=== PATIENT | female | born 2000 | race Caucasian/White ===

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

== ENCOUNTER 2021-08-25 08:58 | Emergency (ER) | payer BC ==
[~2021-08-25] VITALS: Ht 160 cm; Wt 72.7 kg
[2021-08-25 09:08] VITALS: BP 117/72
[2021-08-25] MEDS ORDERED: MUPI22OI30 TOP (09:59)
== END 2021-08-25 10:17 | disposition home or self-care (01) ==
LOC: ER 08:59
DX: S91.105A Unspecified open wound of left lesser toe(s) without damage to nail, initial encounter (principal); M79.675 Pain in left toe(s); R20.0 Anesthesia of skin; F12.90 Cannabis use, unspecified, uncomplicated; Z79.899 Other long term (current) drug therapy; X58.XXXA Exposure to other specified factors, initial encounter; Y93.89 Activity, other specified; Y92.89 Other specified places as the place of occurrence of the external cause; Y99.8 Other external cause status
CPT/HCPCS: 99282; 99283

== ENCOUNTER 2024-01-05 09:38 | Emergency (ER) | payer BC ==
[~2024-01-05] VITALS: Ht 160 cm; Wt 89.9 kg
[2024-01-05] MEDS: triamcinolone acetonide 40mg/ml inj IM ONE (11:58)
[2024-01-05 12:02] VITALS: BP 120/74; PULSE 68; RESP 14; TEMP 97.9; O2SAT 99
== END 2024-01-05 12:03 | disposition home or self-care (01) ==
LOC: ER 09:39
DX: L23.7 Allergic contact dermatitis due to plants, except food (principal); F12.90 Cannabis use, unspecified, uncomplicated; Z79.899 Other long term (current) drug therapy
CPT/HCPCS: 96372; 99283; J3301

== ENCOUNTER 2024-02-27 08:49 | Emergency (ER) | payer BC ==
[~2024-02-27] VITALS: Ht 162.6 cm; Wt 84.1 kg
[2024-02-27 08:50] VITALS: BP 130/95; PULSE 67; RESP 18; TEMP 96.6; O2SAT 100
[2024-02-27 09:58] LABS: BASOPHILS # (AUTO) 0.1 X10'3 (0-0.2); BASOPHILS % (AUTO) 0.9 % (0-1); EOSINOPHILS # (AUTO) 0.1 X10'3 (0-0.9); EOSINOPHILS % (AUTO) 1.3 % (0-6); HEMATOCRIT 40.9 % (35.0-45.0); HEMOGLOBIN 13.4 g/dl (12.0-16.0); LYMPHOCYTES # (AUTO) 2.1 X10'3 (1.1-4.8); LYMPHOCYTES % (AUTO) 27.4 % (21-51); MEAN CORPUSCULAR HEMOGLOBIN 31.3 PG (27.0-31.0); MEAN CORPUSCULAR HGB CONC 32.9 g/dL (33.0-36.5); MEAN CORPUSCULAR VOLUME 95.1 FL (78-98); MEAN PLATELET VOLUME 9.6 FL (7.4-10.4); MONOCYTES # (AUTO) 0.6 X10'3 (0-0.9); MONOCYTES % (AUTO) 7.4 % (2-12); NEUTROPHILS # (AUTO) 4.9 X10'3 (1.8-7.7); PLATELET COUNT 301 X10'3 (140-440); RED CELL DISTRIBUTION WIDTH 13.3 % (11.5-14.5); WHITE BLOOD COUNT 7.7 X10'3 (4.5-11.0)
== END 2024-02-27 10:51 | disposition home or self-care (01) ==
LOC: ER 08:49
DX: O46.8X9 Other antepartum hemorrhage, unspecified trimester (principal); F12.90 Cannabis use, unspecified, uncomplicated; Z79.899 Other long term (current) drug therapy
CPT/HCPCS: 36415; 84702; 85025; 99283

== ENCOUNTER 2024-09-08 12:51 | Emergency (ER) | payer BC ==
[~2024-09-08] VITALS: Ht 160 cm; Wt 88.1 kg
[2024-09-08 12:59] VITALS: BP 140/80; PULSE 72; RESP 16; TEMP 99; O2SAT 99
[2024-09-08 13:32] LABS: BILIRUBIN,URINE NEGATIVE (Neg); CLARITY,URINE SLIGHTLY CLOUDY (Clear); COLOR,URINE YELLOW (Yellow); GLUCOSE, URINE NEGATIVE (Neg); KETONES,URINE TRACE mg/dl (Neg); LEUKOCYTE ESTERASE ,URINE NEGATIVE (Neg); NITRITES, URINE NEGATIVE (Neg); OCCULT BLOOD,URINE LARGE (Neg); PROTEIN,URINE TRACE mg/dl (Neg); UA COLLECTION TYPE CLN CATCH MIDSTREAM; UROBILINOGEN,URINE 0.2 E.U/dL (0.2-1.0)
[2024-09-08 13:34] LABS: URINE HCG NEGATIVE (NEG)
[2024-09-08 13:40] LABS: BACTERIA,URINE FEW /HPF (Neg); MUCUS STRANDS FEW /LPF (Neg); RBC,URINE 20-50 /HPF (0-2); SQUAMOUS EPITHELIAL CELL,UR FEW /LPF (FEW); WBC,URINE 0-4 /HPF (0-4)
--- NOTE | 2024-09-08 14:37 | Physician Documentation ---
History of Present Illness ~ Chief Complaint: Vaginal Bleeding Stated Complaint: VAGINAL BLEED Time Seen by MD: 14:12 Primary Medical Doctor: Dr. Elizondo HPI Patient is seen today with complaints of being a little late on her most recent period, patient states she started spotting yesterday. And started with lower abdominal cramping and abdominal bloating yesterday. She states she started spotting yesterday but now has some abdominal cramps and breast tenderness and feels a little bloated. Patient denies any chest pain or shortness of breath or abdominal pain. She denies any fevers or chills or nausea, vomiting, diarrhea. Patient states her LMP was on August 06 and states her cycle is around 28 days. Patient states she has been once before and had a stillbirth at seven months. Patient has no other concern or complaint at this time. Medication Reconciliation Allergies: Coded Allergies: No Known Allergies (Unverified , 02/27/24) Scheduled Ondansetron Hcl (Zofran), 1 TAB PO Q6H Past Medical History Past Medical History: No Pertinent History Past Surgical History: no surgical history Alcohol Use: None Drug Use: marijuana Lives with: Family Lives In: Home Occupation: student Review of Systems Constitutional: Denies: chills, fever, weakness Eyes: Denies: pain, blurred vision ENT: Denies: ear pain, nose pain, throat pain, mouth pain Respiratory: Denies: cough, shortness of breath Cardiovascular: Denies: chest pain, palpitations Gastrointestinal: Denies: abdominal pain, nausea, vomiting Genitourinary: Denies: burning, dysuria Female Genitalia: Denies: vaginal discharge, pelvic pain Neurological: Denies: headache, dizziness Musculoskeletal: Denies: pain, swelling Integumentary: Denies: rash, lesions Allergic/Immunologic: Denies: hives, itching Hematologic/Lymphatic: Denies: no symptoms reported Psychiatric: Denies: depression, anxiety Physical Exam Vital Signs: Temperature: 99.0, Source: Oral, Heart Rate: 72, Respiratory Rate: 16, BP: 140/80, Pulse Oximetry: 99, Weight: 88.100 Oxygen Flow Rate: 0 Physical Exam General: Awake and Alert, no acute distress. HEENT: Conjunctiva pink, Sclera clear, Mucus Membranes moist. Neck: Supple without masses and tenderness. Resp: Unlabored. Lungs clear to auscultation bilaterally. Heart: Regular Rate and rhythm, normal S1 and S2 without murmur, rub or gallop. Abdomen: Soft and non distended no organomegaly. Normoactive bowel sounds, no rebound tenderness, no guarding, mild tenderness to palpation in the suprapubic/lower abdominal area. Extremities: No cyanosis,clubbing or edema. Skin: Warm and Dry. Progress Results/Orders Results/Orders Vital Signs 09/08/24 12:59 Temp 99.0 Pulse 72 Resp 16 B/P (MAP) 140/80 Pulse Ox 99 O2 Flow Rate 0 Laboratory Tests Test 09/08/24 13:03 Urine Specimen Description Cln catch midstream Urine Color Yellow Urine Clarity Slightly cloudy Urine pH 6.0 Urine Specific [place] >=1.030 Urine Protein Trace Urine Glucose (UA) Negative Urine Ketones Trace H Urine Occult Blood Large H Urine Nitrite Negative Urine Bilirubin Negative Urine Urobilinogen 0.2 Urine Leukocyte Esterase Negative Urine RBC 20-50 Urine WBC 0-4 Urine Squamous Epithelial Cells Few Urine Bacteria Few Urine Mucus Few Urine Culture Indicated Not ind Volume Urine Centrifuged 10 ml Urine HCG, Qualitative Negative Urine Comment Medical Decision Making Findings Patient is seen today with complaints of being a little late on her most recent period, patient states she started spotting yesterday. And started with lower abdominal cramping and abdominal bloating yesterday. She states she started spotting yesterday but now has some abdominal cramps and breast tenderness and feels a little bloated. Patient denies any chest pain or shortness of breath or abdominal pain. She denies any fevers or chills or nausea, vomiting, diarrhea. Patient states her LMP was on August 06 and states her cycle is around 28 days. Patient states she has been once before and had a stillbirth at seven months. Patient has no other concern or complaint at this time. Patient did have urinalysis and negative urine test which patient declined ultrasound of the pelvis today. urinalysis showed negative for infection and only positive for ketones and blood. Patient will follow up with primary care in 2-3 days if no better as needed sooner. Return to ED with any worsening, concerning or changing symptoms. Departure Disposition: HOME / SELF CARE / HOMELESS Impression: Primary Impression: Vaginal bleeding Condition: Stable Discharge Instructions: Dysfunctional Uterine Bleeding Additional Instructions: Patient did have urinalysis and negative urine test which patient declined ultrasound of the pelvis today. urinalysis showed negative for infection and only positive for ketones and blood. Patient will follow up with primary care in 2-3 days if no better as needed sooner. Return to ED with any worsening, concerning or changing symptoms. Referrals: NO PRIMARY CARE PROVIDER (PCP) Signature Scribe Signature: No scribe Attestation: No scribe EDU MENDOZA PAC Sep 08, 2024 14:37
== END 2024-09-08 15:52 | disposition home or self-care (01) ==
LOC: ER 12:52
DX: N93.9 Abnormal uterine and vaginal bleeding, unspecified (principal); F12.90 Cannabis use, unspecified, uncomplicated; Z79.899 Other long term (current) drug therapy
CPT/HCPCS: 81001; 81025; 99283

== ENCOUNTER 2024-12-11 10:39 | Emergency (ER) | payer BC ==
[~2024-12-11] VITALS: Ht 160 cm; Wt 93.2 kg
[2024-12-11 10:52] VITALS: BP 127/72; PULSE 81; RESP 18; O2SAT 99
--- NOTE | 2024-12-11 11:20 | Physician Documentation ---
History of Present Illness ~ Chief Complaint: See Chief Complaint Stated Complaint: HEADACHES AND NAUSEA Time Seen by MD: 11:05 Primary Medical Doctor: Dr. Elizondo Mode of Arrival: POV, Ambulatory HPI This 24-year-old female presents four months and states she has not been feeling well. Denies any vaginal bleeding in his time. States that she has developed herpes simplex cold sores on her lips which she believes is related to taking vitamins. Day of Onset: Dec 11, 2024 Medication Reconciliation Allergies: Coded Allergies: No Known Allergies (Unverified , 02/27/24) Scheduled Ondansetron Hcl (Zofran), 1 TAB PO Q6H Past Medical History Past Medical History: No Pertinent History Past Surgical History: no surgical history Alcohol Use: None Drug Use: marijuana Lives with: Family Lives In: Home Occupation: student Review of Systems All Other Systems at this time: Reviewed and Negative ROS As stated above in the HPI, otherwise all systems are reviewed and negative. Physical Exam Physical Exam Vital Signs: Source: Oral, Heart Rate: 81, Respiratory Rate: 18, BP: 127/72, Pulse Oximetry: 99, Weight: 93.180 Physical Exam General: Alert, no apparent distress. Respiratory: Lungs clear, no respiratory distress. Cardiovascular: Regular rate and rhythm, no murmurs. Gastrointestinal: Soft, nontender, nondistended. Bowels sounds present. Extremities: Normal range of motion, no deformity. Neurologic: Oriented x4. Psychiatric: Normal mood and affect. Skin: Normal color, warm and dry. No edema, no ecchymosis. Progress Results/Orders Results/Orders Completed Orders - KWAN ROBLEDO YEAST FERMENTATION ATTENDANT Acyclovir 5% Ointment (Zovirax Topical O (12/11/24 11:20) Docosanol Cream 2g Tube (Abreva Cream 2g (12/11/24 11:20) Medications Received in ER Medications (Trade) Dose Ordered Sig/Miriam Route PRN Reason Start Time Stop Time Status Last Admin Dose Admin (ABREVA cream 2g tube) 1 applic NOW ONCE TP 12/11/24 11:20 12/11/24 11:25 DC 12/11/24 11:43 1 APPLIC Vital Signs 12/11/24 12/11/24 10:52 11:06 Pulse 81 Resp 18 B/P (MAP) 127/72 Pulse Ox 99 Medical Decision Making Findings Treating this patient for herpes simplex outbreak. She is otherwise unremarkable in her presentation. Did recommend that she continues taking vitamins and follow up with her tire rebuilder Differential Dx:Considerations: Include: -complete, - incomplete, -inevitable, -missed, -threatened, Abruptio placentae, Active labor-term, Active labor-, Appendicitis, [place]-James contraction, Cystitis: Acute, Discomfort of , Ectopic , Ectopic preg.-ruptured, demise, Placenta previa, Pyelonephritis: Acute, Ruture of membranes, Third trimester bleeding, UTI, Vaginal bleeding, Vaginal delivery, Other Departure Disposition: HOME / SELF CARE / HOMELESS Impression: Primary Impression: Herpes simplex Condition: Stable Discharge Instructions: Cold Sore, [id number] Referrals: NO PRIMARY CARE PROVIDER (PCP) Education Educated: Patient Educated regarding: diagnosis Signature Scribe Signature: g Attestation: Scribed for Kwan Robledo Environmental Engineering Assistant by Kwan Diez NP . 12/11/24 11:43 KWAN ROBLEDO NP Dec 11, 2024 11:20
[2024-12-11] MEDS: acyclovir 5% 15GM ointment TP ONE (11:24)
[2024-12-11] MEDS: DOCOSANOL 2 GM CREAM..G. TP ONE (11:43)
== END 2024-12-11 11:46 | disposition home or self-care (01) ==
LOC: ER 10:40
DX: O26.891 Other specified pregnancy related conditions, first trimester (principal); B00.9 Herpesviral infection, unspecified; F12.90 Cannabis use, unspecified, uncomplicated; Z79.899 Other long term (current) drug therapy; Z3A.01 Less than 8 weeks gestation of pregnancy
CPT/HCPCS: 99282

== ENCOUNTER 2025-03-03 09:09 | Emergency (ER) | payer BC, MEDICAID ==
[~2025-03-03] VITALS: Ht 160 cm; Wt 100.3 kg
[2025-03-03 09:12] VITALS: BP 117/58; PULSE 90; TEMP 98.6; O2SAT 99
--- NOTE | 2025-03-03 09:30 | Physician Documentation ---
History of Present Illness ~ Chief Complaint: Complications Stated Complaint: CONCERNS Time Seen by MD: 09:19 Primary Medical Doctor: Dr. Elizondo HPI 24 year old female is ~7 weeks and reports no movement since yesterday. She has a prior spontaneous at 6 weeks and is concerned. Denies cramping, bleeding, dysuria. Last US was in December and was normal. Medication Reconciliation Allergies: Coded Allergies: No Known Allergies (Unverified , 03/03/25) Scheduled Ondansetron Hcl (Zofran), 1 TAB PO Q6H Past Medical History Past Medical History: No Pertinent History Past Surgical History: no surgical history Alcohol Use: None Drug Use: marijuana Lives with: Family Lives In: Home Occupation: student Review of Systems All Other Systems at this time: Reviewed and Negative Physical Exam Physical Exam Vital Signs: RN Vital Signs have been reviewed: Yes, Temperature: 98.6, Source: Oral, Heart Rate: 90, Respiratory Rate: 16, BP: 117/58, Pulse Oximetry: 99, Weight: 100.300 Oxygen Flow Rate: 0 Physical Exam Gen: no distress HEENT: PERRL, EOMI Pulm: no distress CV: deferred Abd: soft, nontender, gravid MSK: no deformity Skin: w/d/i Psych: unremarkable Progress Results/Orders Results/Orders Vital Signs 03/03/25 09:12 Temp 98.6 Pulse 90 Resp 16 B/P (MAP) 117/58 Pulse Ox 99 O2 Flow Rate 0 Medical Decision Making Additional information obtaine: N/A Findings 24 year old female as above. Bedside ultrasound demonstrated normal movement and FHT appropriate. Counseled, reassured, has OB follow up return precautions. Differential Dx:Considerations: Include: -incomplete, -inevit able, -threatened, Abruptio placentae, Active labor-, [place]- [place] contraction, demise, Placenta previa, UTI Departure Disposition: HOME / SELF CARE / HOMELESS Impression: Primary Impression: Intrauterine Condition: Stable Discharge Instructions: Third Trimester of Referrals: NO PRIMARY CARE PROVIDER (PCP) Education Educated: Patient Educated regarding: diagnosis, treatment, prognosis, need for follow up Signature Scribe Signature: . Attestation: . GREGG MENA MD Mar 03, 2025 09:30
[2025-03-03 09:40] VITALS: RESP 16
== END 2025-03-03 09:46 | disposition home or self-care (01) ==
LOC: ER 09:09
DX: O09.291 Supervision of pregnancy with other poor reproductive or obstetric history, first trimester (principal); F12.90 Cannabis use, unspecified, uncomplicated; Z79.899 Other long term (current) drug therapy; Z3A.01 Less than 8 weeks gestation of pregnancy
CPT/HCPCS: 99284

== ENCOUNTER 2025-04-01 13:25 | Emergency (ER) | payer BC, MEDICAID | END 2025-04-01 13:40 | disposition left against medical advice (07) | LOC: ER 13:25 | DX: M54.9 Dorsalgia, unspecified (principal); Z53.21 Procedure and treatment not carried out due to patient leaving prior to being seen by health care provider ==